=== PATIENT | female | born 1995 | race Hispanic/Latino ===

== ENCOUNTER 2018-10-03 04:33 | Emergency (ER) | payer SELFPAY ==
--- NOTE | 2018-10-03 05:09 | ER ---
Nurse's Notes [facility] Name: Melanie Kim Age: 22 yrs Sex: Female : 1995 Arrival Date: 10/03/2018 Time: 04:35 Bed 19 Private MD: Diagnosis: Pain in left finger(s)-ring removed Presentation: 10/03 04:46 Presenting complaint: Patient states: My finger swells when I sleep on it and my ring ed1 got stuck. Transition of care: patient was not received from another setting of care. Onset of symptoms was October 03, 2018. Risk Assessment: Do you want to hurt yourself or someone else? Patient reports no desire to harm self or others. Initial Sepsis Screen: Does the patient meet any 2 criteria? No. Patient's initial sepsis screen is negative. Does the patient have a suspected source of infection? No. Patient's initial sepsis screen is negative. Care prior to arrival: None. 04:46 Method Of Arrival: Ambulatory ed1 04:46 Acuity: NATE 5 ed1 Triage Assessment: 04:48 General: Appears in no apparent distress. Behavior is calm, cooperative. Pain: ed1 Complains of pain in dorsal aspect of proximal phalanx of left middle finger Pain currently is 6 out of 10 on a pain scale. EENT: No signs and/or symptoms were reported regarding the EENT system. Neuro: Level of Consciousness is awake, alert, obeys commands, Oriented to person, place, time, situation. Cardiovascular: Denies chest pain, Heart tones S1 S2 present. Respiratory: Airway is patent Respiratory effort is even, unlabored, Respiratory pattern is regular, symmetrical. GI: No signs and/or symptoms were reported involving the gastrointestinal system. : No signs and/or symptoms were reported regarding the genitourinary system. Derm: Skin is intact, is healthy with good turgor, Skin is dry, Skin is normal, Skin temperature is warm. Musculoskeletal: Circulation, motion, and sensation intact. Swelling present in dorsal aspect of proximal phalanx of left middle finger. 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 - Social history:: Smoking status: Patient uses tobacco products, denies chronic smoking, but will smoke occasionally. - Ebola Screening: : Patient negative for fever greater than or equal to 101.5 degrees Fahrenheit, and additional compatible Ebola Virus Disease symptoms Patient denies exposure to infectious person Patient denies travel to an Ebola-affected area in the 21 days before illness onset No symptoms or risks identified at this time. - Family history:: not pertinent. Screenin:51 Abuse screen: Denies threats or abuse. Denies injuries from another. Nutritional ed1 screening: No deficits noted. Tuberculosis screening: No symptoms or risk factors identified. Fall Risk None identified. Assessment: 04:51 General: See triage assessment. ed1 05:17 Reassessment: Dr. Chin removed ring using ring cutter. ed1 Vital Signs: 04:48 BP 120 / 84; Pulse 97; Resp 17; Temp 98.4(O); Pulse Ox 100% on R/A; Weight 63.5 kg; ed1 Height 4 ft. 11 in. (149.86 cm); Pain 6/10; 04:48 Body Mass Index 28.28 (63.50 kg, 149.86 cm) ed1 ED Course: 04:35 Patient arrived in ED. ds1 04:38 Jarrett Chin MD is Attending Physician. anna 04:40 Coreen Jalloh, RN is Primary Nurse. ed1 04:47 Triage completed. ed1 04:48 Arm band placed on. ed1 04:51 Patient has correct armband on for positive identification. Bed in low position. Call ed1 light in reach. Adult w/ patient. 04:52 Ice pack to injury. ed1 05:17 No provider procedures requiring assistance completed. Patient did not have IV access ed1 during this emergency room visit. Administered Medications: No medications were administered Outcome: 05:08 Discharge ordered by . anna 05:17 Discharged to home ambulatory. ed1 05:17 Condition: good 05:17 Discharge instructions given to patient, Instructed on discharge instructions, follow up and referral plans. Demonstrated understanding of instructions, follow-up care. 05:18 Patient left the ED. ed1 Signatures: Jarrett Chin MD MD cha Sanford, Demi ds1 Coreen Jalloh, RN RN ed1
--- NOTE | 2018-10-03 05:09 | EDPHYS ---
Physician Documentation [facility] [place] Name: Melanie Kim Age: 22 yrs Sex: Female : 1995 Arrival Date: 10/03/2018 Time: 04:35 Bed 19 Private MD: DARIEL Physician Jarrett Chin HPI: 10/03 05:03 This 22 yrs old Female presents to ER via Ambulatory with complaints of Ring anna Stuck on Finger. 05:03 The patient or guardian reports pain, ring stuck. The complaints affect the MCP of left anna ring finger. Context: The problem was sustained at home. Onset: The symptoms/episode began/occurred 1 day(s) ago. Associated signs and symptoms: The patient has no apparent associated signs or symptoms. Severity of symptoms: At their worst the symptoms were mild. The patient has not experienced similar symptoms in the past. 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 - Social history:: Smoking status: Patient uses tobacco products, denies chronic smoking, but will smoke occasionally. - Ebola Screening: : Patient negative for fever greater than or equal to 101.5 degrees Fahrenheit, and additional compatible Ebola Virus Disease symptoms Patient denies exposure to infectious person Patient denies travel to an Ebola-affected area in the 21 days before illness onset No symptoms or risks identified at this time. - Family history:: not pertinent. ROS: 05:03 Constitutional: Negative for fever, chills, and weight loss, Eyes: Negative for injury, anna pain, redness, and discharge, ENT: Negative for injury, pain, and discharge, Neck: Negative for injury, pain, and swelling, Cardiovascular: Negative for chest pain, palpitations, and edema, Respiratory: Negative for shortness of breath, cough, wheezing, and pleuritic chest pain, Abdomen/GI: Negative for abdominal pain, nausea, vomiting, diarrhea, and constipation, Back: Negative for injury and pain, : Negative for injury, bleeding, discharge, and swelling, Skin: Negative for injury, rash, and discoloration, Neuro: Negative for headache, weakness, numbness, tingling, and seizure, Psych: Negative for depression, anxiety, suicide ideation, homicidal ideation, and hallucinations, Allergy/Immunology: Negative for hives, rash, and allergies, Endocrine: Negative for neck swelling, polydipsia, polyuria, polyphagia, and marked weight changes, Hematologic/Lymphatic: Negative for swollen nodes, abnormal bleeding, and unusual bruising. 05:03 MS/extremity: Positive for decreased range of motion, pain, of the dorsal aspect of proximal phalanx of left ring finger. Exam: 05:03 Constitutional: This is a well developed, well nourished patient who is awake, alert, anna and in no acute distress. Head/Face: Normocephalic, atraumatic. Eyes: Pupils equal round and reactive to light, extra-ocular motions intact. Lids and lashes normal. Conjunctiva and sclera are non-icteric and not injected. Cornea within normal limits. Periorbital areas with no swelling, redness, or edema. ENT: Nares patent. No nasal discharge, no septal abnormalities noted. Tympanic membranes are normal and external auditory canals are clear. Oropharynx with no redness, swelling, or masses, exudates, or evidence of obstruction, uvula midline. Mucous membranes moist. Neck: Trachea midline, no thyromegaly or masses palpated, and no cervical lymphadenopathy. Supple, full range of motion without nuchal rigidity, or vertebral point tenderness. No Meningismus. Chest/axilla: Normal chest wall appearance and motion. Nontender with no deformity. No lesions are appreciated. Cardiovascular: Regular rate and rhythm with a normal S1 and S2. No gallops, murmurs, or rubs. Normal PMI, no JVD. No pulse deficits. Respiratory: Lungs have equal breath sounds bilaterally, clear to auscultation and percussion. No rales, rhonchi or wheezes noted. No increased work of breathing, no retractions or nasal flaring. Abdomen/GI: Soft, non-tender, with normal bowel sounds. No distension or tympany. No guarding or rebound. No evidence of tenderness throughout. Back: No spinal tenderness. No costovertebral tenderness. Full range of motion. Skin: Warm, dry with normal turgor. Normal color with no rashes, no lesions, and no evidence of cellulitis. Neuro: Awake and alert, GCS 15, oriented to person, place, time, and situation. Cranial nerves II-XII grossly intact. Motor strength 5/5 in all extremities. Sensory grossly intact. Cerebellar exam normal. Normal gait. Psych: Awake, alert, with orientation to person, place and time. Behavior, mood, and affect are within normal limits. 05:03 Musculoskeletal/extremity: Extremities: pain, swelling, ROM: full active range of motion, full passive range of motion, Circulation is intact in all extremities. Sensation intact. DVT Exam: negative Homans' sign noted on exam, no appreciated bluish discoloration, no erythema, no increased warmth, pain, swelling, tenderness. Vital Signs: 04:48 BP 120 / 84; Pulse 97; Resp 17; Temp 98.4(O); Pulse Ox 100% on R/A; Weight 63.5 kg; ed1 Height 4 ft. 11 in. (149.86 cm); Pain 6/10; 04:48 Body Mass Index 28.28 (63.50 kg, 149.86 cm) ed1 Procedures: 05:03 Foreign Body Removal: piece of jewelry, from the left dorsal aspect of proximal phalanx anna of left ring finger and palmar aspect of proximal phalanx of left ring finger, by cutter. MDM: 04:38 Patient medically screened. [facility] 05:03 Data reviewed: vital signs, nurses notes. anna Administered Medications: No medications were administered Disposition: 10/03/18 05:08 Discharged to Home. Impression: Pain in left finger(s) - ring removed. - Condition is Stable. - Discharge Instructions: Finger Sprain, [id number]. - Medication Reconciliation Form, Thank You Letter, Antibiotic Education, Prescription Opioid Use, Family Work Release form. - Follow up: Private Physician; When: 2 - 3 days; Reason: Recheck today's complaints, Continuance of care, Re-evaluation by your physician. - Problem is new. - Symptoms have improved. Signatures: Jarrett Chin MD MD cha Riggs, Erika, RN RN ed1 Corrections: (The following items were deleted from the chart) 05:18 05:08 10/03/2018 05:08 Discharged to Home. Impression: Pain in left finger(s) - ring ed1 removed. Condition is Stable. Forms are Medication Reconciliation Form, Thank You Letter, Antibiotic Education, Prescription Opioid Use. Follow up: Private Physician; When: 2 - 3 days; Reason: Recheck today's complaints, Continuance of care, Re-evaluation by your physician. Problem is new. Symptoms have improved. anna
== END 2018-10-03 05:18 | disposition home or self-care (01) ==
LOC: ER 04:33
DX: M79.645 Pain in left finger(s) (principal); F90.9 Attention-deficit hyperactivity disorder, unspecified type; Z72.0 Tobacco use
CPT/HCPCS: 99281

== ENCOUNTER 2019-01-14 01:00 | Emergency (ER) | payer SELFPAY ==
[2019-01-14] MEDS ORDERED: KETOROLAC 30 MG/ML INJ ONE (02:03)
[2019-01-14] MEDS ORDERED: ONDANSETRON 4 MG/2 ML VIAL ONE (02:03)
[2019-01-14] MEDS ORDERED: NA CHLORIDE 0.9% 1,000 ML ONE (02:03)
[2019-01-14 02:33] LABS: Urine Blood NEGATIVE (NEG); Urine Glucose NEGATIVE (NEG); Urine Protein NEGATIVE (NEG)
--- NOTE | 2019-01-14 03:15 | EDPHYS ---
Physician Documentation [facility] [place] Name: Melanie Kim Age: 23 yrs Sex: Female : 1995 Arrival Date: 01/14/2019 Time: 01:04 Bed 8 Private MD: ED Physician Bandar Urena HPI: 01/14 03:17 This 23 yrs old Female presents to ER via Ambulatory with complaints of tw4 Headache, Spotting. 03:17 The patient complains of pain to the forehead. The patient describes the headache as tw4 aching. Onset: The symptoms/episode began/occurred 1 month(s) ago, and became persistent yesterday. Associated signs and symptoms: Pertinent positives: nausea, Photophobia visual field changes, Pertinent negatives: fever, neck stiffness, paresthesias, vision loss. Severity of symptoms: At its worst the pain was moderate, in the emergency department the pain is unchanged. Headache History: Denies prior headaches. The symptoms are alleviated by Darkened room, quiet, the symptoms are aggravated by lights, noise. The patient has not experienced similar symptoms in the past. 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 - Social history:: Smoking status: Patient uses tobacco products, smokes one-half pack cigarettes per day, Patient uses alcohol, occasionally. Patient/guardian denies using street drugs. - Ebola Screening: : Patient negative for fever greater than or equal to 101.5 degrees Fahrenheit, and additional compatible Ebola Virus Disease symptoms Patient denies exposure to infectious person Patient denies travel to an Ebola-affected area in the 21 days before illness onset. ROS: 03:17 Constitutional: Negative for fever, chills, and weight loss, Eyes: Negative for injury, tw4 pain, redness, and discharge, Cardiovascular: Negative for chest pain, palpitations, and edema, Respiratory: Negative for shortness of breath, cough, wheezing, and pleuritic chest pain, Abdomen/GI: Negative for abdominal pain, nausea, vomiting, diarrhea, and constipation, Back: Negative for injury and pain, MS/Extremity: Negative for injury and deformity. 03:17 Neuro: Positive for headache, Negative for altered mental status, dizziness, gait disturbance, numbness, seizure activity, speech changes, syncope, near syncope, tinnitus, tremor, visual changes. Exam: 03:17 Constitutional: This is a well developed, well nourished patient who is awake, alert, tw4 and in no acute distress. Head/Face: Normocephalic, atraumatic. Chest/axilla: Normal chest wall appearance and motion. Nontender with no deformity. No lesions are appreciated. Cardiovascular: Regular rate and rhythm with a normal S1 and S2. No gallops, murmurs, or rubs. Normal PMI, no JVD. No pulse deficits. Respiratory: Lungs have equal breath sounds bilaterally, clear to auscultation and percussion. No rales, rhonchi or wheezes noted. No increased work of breathing, no retractions or nasal flaring. Abdomen/GI: Soft, non-tender, with normal bowel sounds. No distension or tympany. No guarding or rebound. No evidence of tenderness throughout. Back: No spinal tenderness. No costovertebral tenderness. Full range of motion. MS/ Extremity: Pulses equal, no cyanosis. Neurovascular intact. Full, normal range of motion. 03:17 Neuro: Awake and alert, GCS 15, oriented to person, place, time, and situation. Cranial nerves II-XII grossly intact. Motor strength 5/5 in all extremities. Sensory grossly intact. Cerebellar exam normal. Normal gait. 03:17 Neuro: Orientation: is normal, Mentation: is normal, Memory: is normal. Vital Signs: 01:26 BP 121 / 84; Pulse 97; Resp 17; Temp 98.1(O); Pulse Ox 100% on R/A; Weight 65.77 kg; tl1 Height 4 ft. 10 in. (147.32 cm); Pain 5/10; 02:09 BP 121 / 106; Pulse 71; Resp 16; Pulse Ox 100% on R/A; Pain 5/10; tl1 03:11 BP 92 / 68; Pulse 68; Resp 17; Pulse Ox 100% ; Pain 2/10; tl1 01:26 Body Mass Index 30.30 (65.77 kg, 147.32 cm) tl1 MDM: 01:40 Patient medically screened. tw4 03:17 Data reviewed: vital signs, nurses notes. Counseling: I had a detailed discussion with tw4 the patient and/or guardian regarding: the historical points, exam findings, and any diagnostic results supporting the discharge/admit diagnosis. Medication response: Toradol relieved patient's pain. The symptoms have resolved, Zofran relieved the patient's nausea. Response to treatment: and as a result, I will discharge patient. 01/14 01:47 Order name: Urine Dipstick--Ancillary (enter results) em1 01/14 01:47 Order name: Urine --Ancillary (enter results) em1 01/14 01:40 Order name: Urine Dipstick-Ancillary (obtain specimen); Complete Time: 01:46 tw4 01/14 01:40 Order name: Urine Test (obtain specimen); Complete Time: 01:46 tw4 Administered Medications: 02:06 Drug: NS 0.9% 1000 ml Route: IV; Rate: 1 bolus; Site: right antecubital; bb 02:50 Follow up: IV Status: Completed infusion; IV Intake: 1000ml tl1 02:06 Drug: TORadol 30 mg Route: IVP; Site: right antecubital; bb 03:26 Follow up: Response: No adverse reaction; Marked relief of symptoms; Pain is decreased tl1 02:51 Drug: Zofran 4 mg Route: IVP; Infused Over: 2 mins; Site: right antecubital; tl1 03:26 Follow up: Response: No adverse reaction; Marked relief of symptoms; Pain is decreased tl1 Disposition: 01/14/19 03:15 Discharged to Home. Impression: Migraine without aura, not intractable. - Condition is Stable. - Discharge Instructions: Migraine Headache. - Prescriptions for Fiorinal 50- 325-40 mg Oral Capsule - take 1 capsule by ORAL route every 4 hours As needed - not to exceed 6 capsules per day; 20 capsule. - Medication Reconciliation Form, Thank You Letter, Antibiotic Education, Prescription Opioid Use form. - Follow up: Private Physician; When: Upon discharge from the Emergency Department; Reason: If symptoms return, Recheck today's complaints, Continuance of care. - Problem is new. - Symptoms have improved. Signatures: Dispatcher [employer] EDEstee Mendez, RN RN bb Yennifer Hyatt RN RN tl1 Bandar Urena MD MD tw4 Corrections: (The following items were deleted from the chart) 03:28 03:15 01/14/2019 03:15 Discharged to Home. Impression: Migraine without aura, not tl1 intractable. Condition is Stable. Forms are Medication Reconciliation Form, Thank You Letter, Antibiotic Education, Prescription Opioid Use. Follow up: Private Physician; When: Upon discharge from the Emergency Department; Reason: If symptoms return, Recheck today's complaints, Continuance of care. Problem is new. Symptoms have improved. tw4
--- NOTE | 2019-01-14 03:15 | ER ---
Nurse's Notes [facility] [place] Name: Melanie Kim Age: 23 yrs Sex: Female : 1995 Arrival Date: 01/14/2019 Time: 01:04 Bed 8 Private MD: Diagnosis: Migraine without aura, not intractable Presentation: 01/14 01:23 Presenting complaint: Patient states: I have had a migraine for about 1 month. I tl1 vomited 1 time today. Transition of care: patient was not received from another setting of care. Onset of symptoms is unknown. Risk Assessment: Do you want to hurt yourself or someone else? Patient reports no desire to harm self or others. Initial Sepsis Screen: Does the patient meet any 2 criteria? No. Patient's initial sepsis screen is negative. Does the patient have a suspected source of infection? No. Patient's initial sepsis screen is negative. Care prior to arrival: None. 01:23 Method Of Arrival: Ambulatory tl1 01:23 Acuity: NATE 3 tl1 Triage Assessment: 03:27 Headache History: The patient has had previous headaches and this one is similar to tl1 previous episodes. General: Appears in no apparent distress. Pain: Also complains of. 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 - Social history:: Smoking status: Patient uses tobacco products, smokes one-half pack cigarettes per day, Patient uses alcohol, occasionally. Patient/guardian denies using street drugs. - Ebola Screening: : Patient negative for fever greater than or equal to 101.5 degrees Fahrenheit, and additional compatible Ebola Virus Disease symptoms Patient denies exposure to infectious person Patient denies travel to an Ebola-affected area in the 21 days before illness onset. Screenin:28 Abuse screen: Denies threats or abuse. Denies injuries from another. Nutritional tl1 screening: No deficits noted. Tuberculosis screening: No symptoms or risk factors identified. Fall Risk IV access (20 points). Assessment: 01:20 General: Appears in no apparent distress. uncomfortable, Behavior is calm, cooperative. bb Pain: Complains of pain in head Pain currently is 5 out of 10 on a pain scale. Neuro: Level of Consciousness is awake, alert, obeys commands, Oriented to person, place, time, situation. Cardiovascular: No deficits noted. Respiratory: Respiratory effort is even, unlabored, Respiratory pattern is regular. GI: Abdomen is non-distended. Derm: Skin is pink, warm \T\ dry. Musculoskeletal: Circulation, motion, and sensation intact. 03:25 Reassessment: Patient and/or family updated on plan of care and expected duration. Pain tl1 level reassessed. Patient is alert, oriented x 3, equal unlabored respirations, skin warm/dry/pink. Patient states feeling better. Patient states symptoms have improved. General: Appears in no apparent distress. Behavior is calm, cooperative, appropriate for age. Pain: Complains of pain in forehead Pain currently is 2 out of 10 on a pain scale. Quality of pain is described as aching. Neuro: Level of Consciousness is awake, alert, obeys commands, Oriented to person, place, time, situation. Vital Signs: 01:26 BP 121 / 84; Pulse 97; Resp 17; Temp 98.1(O); Pulse Ox 100% on R/A; Weight 65.77 kg; tl1 Height 4 ft. 10 in. (147.32 cm); Pain 5/10; 02:09 BP 121 / 106; Pulse 71; Resp 16; Pulse Ox 100% on R/A; Pain 5/10; tl1 03:11 BP 92 / 68; Pulse 68; Resp 17; Pulse Ox 100% ; Pain 2/10; tl1 01:26 Body Mass Index 30.30 (65.77 kg, 147.32 cm) tl1 ED Course: 01:04 Patient arrived in ED. cl3 01:20 Patient has correct armband on for positive identification. Bed in low position. Call bb light in reach. Side rails up X 1. Adult w/ patient. Pulse ox on. NIBP on. Warm blanket given. 01:23 Yennifer Hyatt RN is Primary Nurse. tl1 01:25 Triage completed. tl1 01:27 Arm band placed on right wrist. tl1 01:27 No provider procedures requiring assistance completed. Inserted saline lock: 20 gauge tl1 in right antecubital area, using aseptic technique. Blood collected. 01:40 Bandar Urena MD is Attending Physician. tw4 03:28 IV discontinued, intact, bleeding controlled, No redness/swelling at site. Pressure tl1 dressing applied. Administered Medications: 02:06 Drug: NS 0.9% 1000 ml Route: IV; Rate: 1 bolus; Site: right antecubital; bb 02:50 Follow up: IV Status: Completed infusion; IV Intake: 1000ml tl1 02:06 Drug: TORadol 30 mg Route: IVP; Site: right antecubital; bb 03:26 Follow up: Response: No adverse reaction; Marked relief of symptoms; Pain is decreased tl1 02:51 Drug: Zofran 4 mg Route: IVP; Infused Over: 2 mins; Site: right antecubital; tl1 03:26 Follow up: Response: No adverse reaction; Marked relief of symptoms; Pain is decreased tl1 Intake: 02:50 IV: 1000ml; Total: 1000ml. tl1 Outcome: 03:15 Discharge ordered by . tw4 03:26 Discharged to home ambulatory, with family. tl1 03:26 Condition: improved 03:26 Discharge instructions given to patient, family, Instructed on discharge instructions, follow up and referral plans. medication usage, Demonstrated understanding of instructions, follow-up care, medications, Prescriptions given X 1. 03:28 Patient left the ED. tl1 Signatures: Estee Arce RN RN bb Yennifer Hyatt RN RN tl1 Bandar Urena MD MD [id number] Sung Rasmussen 3
[2019-01-14 06:57] VITALS: TEMP 98.1; O2SAT 100
[2019-01-14 07:00] VITALS: BP 92/68
== END 2019-01-14 03:28 | disposition home or self-care (01) ==
LOC: ER 01:00
DX: G43.009 Migraine without aura, not intractable, without status migrainosus (principal); F90.9 Attention-deficit hyperactivity disorder, unspecified type
CPT/HCPCS: 81003; 81025; 96361; 96374; 96375; 99284; J2405; J7030

== ENCOUNTER 2019-01-16 10:41 | Emergency (ER) | payer SELFPAY ==
[2019-01-16] MEDS ORDERED: ONDANSETRON 4 MG/2 ML VIAL ONE (11:15)
[2019-01-16] MEDS ORDERED: NA CHLORIDE 0.9% 1,000 ML ONE (11:15)
[2019-01-16] MEDS ORDERED: MORPHINE 4 MG/ML SYR ONE (11:39)
[2019-01-16 11:57] LABS: Absolute Lymphocytes (CBC) 1.5 K/uL (0.7-4.9); Basophils % 0.4 % (0-1.3); Hematocrit 38.4 % (36.0-45.0); Lymphocytes % 18.6 % (15.3-44.8); MPV 9.6 fL (7.6-11.3); RBC Red Blood Cell Count 4.61 M/uL (3.86-4.86)
[2019-01-16 12:19] LABS: ALT/SGPT 61 U/L (12-78); AST/SGOT 30 U/L (15-37); Alkaline Phosphatase 106 U/L (45-117); BUN Blood Urea Nitrogen 11 mg/dL (7-18); Bicarbonate 26 mmol/L (21-32); Bilirubin Direct < 0.1 mg/dL (0-0.2); Bilirubin Total 0.2 mg/dL (0.2-1.0); Glucose Level 102 mg/dL (74-106); Lipase 192 U/L (73-393); Potassium 4.1 mmol/L (3.5-5.1); Protein, Total 8.4 g/dL (6.4-8.2); Sodium Level 142 mmol/L (136-145)
--- NOTE | 2019-01-16 12:52 | ER ---
Nurse's Notes [facility] [place] Name: Melanie Kim Age: 23 yrs Sex: Female : 1995 Arrival Date: 01/16/2019 Time: 10:43 Bed 20 Private MD: Diagnosis: Gastritis, unspecified Presentation: 01/16 10:49 Presenting complaint: Patient states: This morning when I was waking up my eyes were la1 open and I was looking at the wall but I couldn't move, this lasted for about three minutes and then I got up and started vomiting. I have thrown up about 7 times and am having abd pain now. Transition of care: patient was not received from another setting of care. Onset of symptoms was January 16, 2019. Risk Assessment: Do you want to hurt yourself or someone else? Patient reports no desire to harm self or others. Initial Sepsis Screen: Does the patient meet any 2 criteria? No. Patient's initial sepsis screen is negative. Does the patient have a suspected source of infection? No. Patient's initial sepsis screen is negative. Care prior to arrival: None. 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 - Social history:: Smoking status: Patient uses tobacco products, smokes one-half pack cigarettes per day, Patient/guardian denies using alcohol, street drugs, The patient lives with family. - Ebola Screening: : No symptoms or risks identified at this time. - Family history:: not pertinent. Screenin:57 Abuse screen: Denies threats or abuse. Denies injuries from another. Nutritional ph screening: No deficits noted. Tuberculosis screening: No symptoms or risk factors identified. Fall Risk None identified. Assessment: 11:45 General: Appears in no apparent distress. comfortable, well groomed, Behavior is calm, ph cooperative, appropriate for age, Denies fever, chills. Pain: Complains of pain in right upper quadrant and left upper quadrant. Neuro: Level of Consciousness is awake, alert, obeys commands, Oriented to person, place, time, situation. Cardiovascular: Capillary refill < 3 seconds in bilateral fingers Patient's skin is warm and dry. Respiratory: Airway is patent Respiratory effort is even, unlabored, Respiratory pattern is regular, symmetrical. GI: Abdomen is round Bowel sounds present X 4 quads. Abd is soft X 4 quads Abdomen is tender to palpation in right upper quadrant and left upper quadrant Reports upper abdominal pain, nausea, vomiting. Derm: Skin is intact, is healthy with good turgor, Skin is pink, warm \T\ dry. Musculoskeletal: Circulation, motion, and sensation intact. Range of motion: intact in all extremities. 13:00 Reassessment: Patient appears in no apparent distress at this time. Patient and/or ph family updated on plan of care and expected duration. Pain level reassessed. Patient is alert, oriented x 3, equal unlabored respirations, skin warm/dry/pink. Patient states symptoms have improved. 14:00 Reassessment: Patient appears in no apparent distress at this time. No changes from previously documented assessment. Patient and/or family updated on plan of care and expected duration. Pain level reassessed. Patient is alert, oriented x 3, equal unlabored respirations, skin warm/dry/pink. Vital Signs: 10:48 BP 126 / 92; Pulse 79; Resp 16; Temp 97.5; Pulse Ox 100% on R/A; Weight 63.96 kg; la1 Height 4 ft. 10 in. (147.32 cm); 11:47 BP 117 / 73; Pulse 76; Resp 18; Pulse Ox 99% on R/A; Pain 5/10; ph 13:10 BP 118 / 78; Pulse 76; Resp 18; Temp 98.0; Pulse Ox 99% on R/A; ph 10:48 Body Mass Index 29.47 (63.96 kg, 147.32 cm) la1 ED Course: 10:43 Patient arrived in ED. mr 10:47 Arm band placed on left wrist. la1 10:50 Triage completed. la1 10:52 Bishnu Kline MD is Attending Physician. ma2 10:55 Patricia Dutton RN is Primary Nurse. ph 10:58 Patient has correct armband on for positive identification. Pulse ox on. NIBP on. Door ph closed. Noise minimized. Warm blanket given. Head of bed elevated. 12:50 Keagan Martin MD is Hospitalizing Provider. ma2 13:11 No provider procedures requiring assistance completed. IV discontinued, intact, ph bleeding controlled, No redness/swelling at site. Pressure dressing applied. Administered Medications: 11:35 Drug: NS 0.9% 1000 ml Route: IV; Rate: 1 bolus; Site: right antecubital; ph 13:10 Follow up: Response: No adverse reaction; IV Status: Completed infusion; IV Intake: ph 1000ml 11:35 Drug: Zofran 4 mg Route: IVP; Site: right antecubital; ph 13:10 Follow up: Response: No adverse reaction ph 11:45 Drug: morphine 4 mg Route: IVP; Site: right antecubital; ph 13:10 Follow up: Response: No adverse reaction; Pain is decreased; RASS: Alert and Calm (0) ph Intake: 13:10 IV: 1000ml; Total: 1000ml. ph Outcome: 12:50 Decision to Hospitalize by Provider. ma2 12:51 Discharge ordered by . ma2 13:11 Discharged to home ambulatory, with significant other. ph 13:11 Condition: good 13:11 Discharge instructions given to patient, Instructed on discharge instructions, follow up and referral plans. medication usage, Demonstrated understanding of instructions, follow-up care, medications, Prescriptions given X 2. 13:12 Patient left the ED. ph Signatures: Julee Jacobsen Lee, RN RN la1 Patricia Dutton RN RN ph Bishun Kline MD MD ma2
--- NOTE | 2019-01-16 12:52 | EDPHYS ---
Physician Documentation [facility] Name: Melanie Kim Age: 23 yrs Sex: Female : 1995 Arrival Date: 01/16/2019 Time: 10:43 Bed 20 Private MD: ED Physician Bishnu Kline HPI: 01/16 12:49 This 23 yrs old Female presents to ER via Ambulatory with complaints of ma2 Abdominal Pain, Vomiting. 12:49 The patient presents to the emergency department with nausea, vomiting. Onset: The ma2 symptoms/episode began/occurred gradually, 1 week(s) ago. The symptoms are alleviated by nothing. Associated signs and symptoms: Pertinent negatives: abdominal pain. Severity of symptoms: At their worst the symptoms were very mild in the emergency department the symptoms are unchanged. The patient has not experienced similar symptoms in the past. 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 - Social history:: Smoking status: Patient uses tobacco products, smokes one-half pack cigarettes per day, Patient/guardian denies using alcohol, street drugs, The patient lives with family. - Ebola Screening: : No symptoms or risks identified at this time. - Family history:: not pertinent. ROS: 12:49 Constitutional: Negative for fever, chills, and weight loss. ma2 12:49 All other systems are negative. Exam: 12:49 Constitutional: This is a well developed, well nourished patient who is awake, alert, ma2 and in no acute distress. Head/Face: Normocephalic, atraumatic. Eyes: Pupils equal round and reactive to light, extra-ocular motions intact. Lids and lashes normal. Conjunctiva and sclera are non-icteric and not injected. Cornea within normal limits. Periorbital areas with no swelling, redness, or edema. ENT: Nares patent. No nasal discharge, no septal abnormalities noted. Tympanic membranes are normal and external auditory canals are clear. Oropharynx with no redness, swelling, or masses, exudates, or evidence of obstruction, uvula midline. Mucous membranes moist. Neck: Trachea midline, no thyromegaly or masses palpated, and no cervical lymphadenopathy. Supple, full range of motion without nuchal rigidity, or vertebral point tenderness. No Meningismus. Chest/axilla: Normal chest wall appearance and motion. Nontender with no deformity. No lesions are appreciated. Cardiovascular: Regular rate and rhythm with a normal S1 and S2. No gallops, murmurs, or rubs. Normal PMI, no JVD. No pulse deficits. Respiratory: Lungs have equal breath sounds bilaterally, clear to auscultation and percussion. No rales, rhonchi or wheezes noted. No increased work of breathing, no retractions or nasal flaring. Abdomen/GI: Soft, non-tender, with normal bowel sounds. No distension or tympany. No guarding or rebound. No evidence of tenderness throughout. Back: No spinal tenderness. No costovertebral tenderness. Full range of motion. Skin: Warm, dry with normal turgor. Normal color with no rashes, no lesions, and no evidence of cellulitis. MS/ Extremity: Pulses equal, no cyanosis. Neurovascular intact. Full, normal range of motion. Neuro: Awake and alert, GCS 15, oriented to person, place, time, and situation. Cranial nerves II-XII grossly intact. Motor strength 5/5 in all extremities. Sensory grossly intact. Cerebellar exam normal. Normal gait. Vital Signs: 10:48 BP 126 / 92; Pulse 79; Resp 16; Temp 97.5; Pulse Ox 100% on R/A; Weight 63.96 kg; la1 Height 4 ft. 10 in. (147.32 cm); 11:47 BP 117 / 73; Pulse 76; Resp 18; Pulse Ox 99% on R/A; Pain 5/10; ph 13:10 BP 118 / 78; Pulse 76; Resp 18; Temp 98.0; Pulse Ox 99% on R/A; ph 10:48 Body Mass Index 29.47 (63.96 kg, 147.32 cm) la1 MDM: 10:52 Patient medically screened. ma2 12:49 Differential diagnosis: Nonspecific abd pain, gastritis, cholecystitis, pancreatitis, ma2 viral gastroenteritis, gastroenteritis. Data reviewed: vital signs, nurses notes. Counseling: I had a detailed discussion with the patient and/or guardian regarding: the historical points, exam findings, and any diagnostic results supporting the discharge/admit diagnosis, the presence of at least one elevated blood pressure reading (>120/80) during this emergency department visit, the need for outpatient follow up. Response to treatment: the patient's symptoms have markedly improved after treatment. 01/16 10:55 Order name: Basic Metabolic Panel; Complete Time: 12:45 ma2 01/16 10:55 Order name: CBC with Diff; Complete Time: 12:19 ma2 01/16 10:55 Order name: Creatinine for Radiology; Complete Time: 12:19 ma2 01/16 10:55 Order name: Hepatic Function; Complete Time: 12:45 ma2 01/16 10:55 Order name: Lipase; Complete Time: 12:45 ma2 01/16 10:55 Order name: Test, Serum; Complete Time: 12:51 ma2 01/16 10:55 Order name: IV Saline Lock; Complete Time: 11:45 ma2 01/16 10:55 Order name: Labs collected and sent; Complete Time: 11:45 ma2 01/16 10:55 Order name: Urine Dipstick-Ancillary (obtain specimen); Complete Time: 13:10 ma2 Administered Medications: 11:35 Drug: NS 0.9% 1000 ml Route: IV; Rate: 1 bolus; Site: right antecubital; ph 13:10 Follow up: Response: No adverse reaction; IV Status: Completed infusion; IV Intake: ph 1000ml 11:35 Drug: Zofran 4 mg Route: IVP; Site: right antecubital; ph 13:10 Follow up: Response: No adverse reaction ph 11:45 Drug: morphine 4 mg Route: IVP; Site: right antecubital; ph 13:10 Follow up: Response: No adverse reaction; Pain is decreased; RASS: Alert and Calm (0) ph Disposition: 01/16/19 12:51 Discharged to Home. Impression: Gastritis, unspecified. - Condition is Stable. - Discharge Instructions: Gastritis, Adult. - Prescriptions for Pepcid 20 mg Oral Tablet - take 1 tablet by ORAL route every 12 hours for 10 days; 20 tablet. promethazine 25 mg Oral Tablet - take 1 tablet by ORAL route every 6 hours As needed; 20 tablet. - Medication Reconciliation Form, Thank You Letter, Antibiotic Education, Prescription Opioid Use form. - Follow up: Private Physician; When: Tomorrow; Reason: Continuance of care. Signatures: Dispatcher [employer] Mike Larios RN RN la1 Patricia Dutton RN RN Bishnu Kline MD MD ma2 Corrections: (The following items were deleted from the chart) 12:51 12:50 Hospitalization Ordered by Keagan Martin MD for Observation. Preliminary diagnosis ma2 is Syncope and collapse. Bed requested for Telemetry/MedSurg (observation). Status is Observation. Condition is Stable. Problem is new. Symptoms are unchanged. UTI on Admission? No. ma2 13:12 12:51 01/16/2019 12:51 Discharged to Home. Impression: Gastritis, unspecified. ph Condition is Stable. Forms are Medication Reconciliation Form, Thank You Letter, Antibiotic Education, Prescription Opioid Use. Follow up: Private Physician; When: Tomorrow; Reason: Continuance of care. ma2
[2019-01-16 13:37] VITALS: O2SAT 99
[2019-01-16 13:39] VITALS: BP 118/78; TEMP 98
== END 2019-01-16 13:12 | disposition home or self-care (01) ==
LOC: ER 10:41
DX: K29.70 Gastritis, unspecified, without bleeding (principal); F17.210 Nicotine dependence, cigarettes, uncomplicated
CPT/HCPCS: 36415; 80048; 80076; 83690; 84703; 85025; 96361; 96374; 96375; 99283; J2405; J7030

== ENCOUNTER 2019-01-16 23:53 | Observation (INO) | payer SELFPAY ==
[2019-01-17] MEDS ORDERED: FAMOTIDINE 20 MG/2 ML VIAL IV ONE (00:18)
[2019-01-17] MEDS ORDERED: NA CHLORIDE 0.9% 1,000 ML ONE ×2 (00:33→02:44)
[2019-01-17 00:54] LABS: Absolute Lymphocytes (CBC) 2.3 K/uL (0.7-4.9); Basophils % 0.3 % (0-1.3); Hematocrit 36.2 % (36.0-45.0); Lymphocytes % 21.9 % (15.3-44.8); MPV 9.4 fL (7.6-11.3); RBC Red Blood Cell Count 4.36 M/uL (3.86-4.86)
[2019-01-17 00:56] LABS: ALT/SGPT 55 U/L (12-78); AST/SGOT 26 U/L (15-37); Albumin 3.9 g/dL (3.4-5.0); Alkaline Phosphatase 83 U/L (45-117); BUN Blood Urea Nitrogen 8 mg/dL (7-18); Bicarbonate 28 mmol/L (21-32); Bilirubin Direct 0.1 mg/dL (0-0.2); Bilirubin Total 0.3 mg/dL (0.2-1.0); Glucose Level 93 mg/dL (74-106); Lipase 143 U/L (73-393); Potassium 3.6 mmol/L (3.5-5.1); Sodium Level 139 mmol/L (136-145)
--- NOTE | 2019-01-17 02:40 | ER ---
Nurse's Notes [facility] [place] Name: Melanie Kim Age: 23 yrs Sex: Female : 1995 Arrival Date: 01/16/2019 Time: 23:55 Bed 15 Private MD: Diagnosis: Generalized abdominal pain Presentation: 01/17 00:21 Presenting complaint: Patient states: Abdominal pain for a week. Nausea and vomiting . ao Transition of care: patient was not received from another setting of care. Onset of symptoms is unknown. Risk Assessment: Do you want to hurt yourself or someone else? Patient reports no desire to harm self or others. Initial Sepsis Screen: Does the patient meet any 2 criteria? No. Patient's initial sepsis screen is negative. Does the patient have a suspected source of infection? No. Patient's initial sepsis screen is negative. Care prior to arrival: None. 00:21 Method Of Arrival: Ambulatory ao 00:21 Acuity: NATE 3 ao Triage Assessment: 00:25 General: Appears in no apparent distress. comfortable, well groomed, well developed, ao well nourished, Behavior is calm, cooperative, appropriate for age. Pain: Complains of pain in abdomen. EENT: No signs and/or symptoms were reported regarding the EENT system. Neuro: Level of Consciousness is awake, alert, obeys commands, Oriented to person, place, time, situation, Appropriate for age Moves all extremities. Full function. Cardiovascular: No deficits noted. Respiratory: No deficits noted. GI: Reports lower abdominal pain, nausea, vomiting. : No signs and/or symptoms were reported regarding the genitourinary system. Derm: No signs and/or symptoms reported regarding the dermatologic system. Musculoskeletal: No signs and/or symptoms reported regarding the musculoskeletal system. 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 - Social history:: Smoking status: Patient uses tobacco products, smokes one-half pack cigarettes per day, Patient/guardian denies using alcohol, street drugs. - Ebola Screening: : Patient negative for fever greater than or equal to 101.5 degrees Fahrenheit, and additional compatible Ebola Virus Disease symptoms Patient denies exposure to infectious person Patient denies travel to an Ebola-affected area in the 21 days before illness onset. Screenin:25 Abuse screen: Denies threats or abuse. Denies injuries from another. Nutritional ao screening: No deficits noted. Tuberculosis screening: No symptoms or risk factors identified. Fall Risk None identified. Assessment: 00:26 Reassessment: See triage assessment. ao 01:14 Reassessment: Patient appears in no apparent distress at this time. Patient and/or ao family updated on plan of care and expected duration. Pain level reassessed. Patient is alert, oriented x 3, equal unlabored respirations, skin warm/dry/pink. 02:22 Reassessment: Patient appears in no apparent distress at this time. Waiting on dispo ao orders. 02:47 Reassessment: Patient o be admitted to the hospital. Patient and family agree with POC. ao Vital Signs: 00:23 BP 99 / 59; Pulse 110; Resp 16; Temp 98.8(O); Pulse Ox 100% on R/A; Weight 65.77 kg; ao Height 4 ft. 10 in. (147.32 cm); Pain 5/10; 01:14 BP 115 / 78; Pulse 101; Resp 18; Pulse Ox 99% ; ao 02:22 BP 97 / 66; Pulse 98; Resp 16; Pulse Ox 91% ; ao 02:46 BP 115 / 82; Pulse 95; Resp 16; Temp 98.6; Pulse Ox 99% on R/A; ao 00:23 Body Mass Index 30.30 (65.77 kg, 147.32 cm) ao ED Course: 01/16 23:55 Patient arrived in ED. cf2 23:57 [facility]rit[facility]C [facility]. kb 23:57 Ming Lyons MD is Attending Physician. kb 01/17 00:06 Gee Geiger, TADEO is Primary Nurse. ao 00:22 Triage completed. ao 00:25 Arm band placed on right wrist. Patient placed in an exam room, on a stretcher, on ao pulse oximetry, Patient notified of wait time. 00:26 Patient has correct armband on for positive identification. Pulse ox on. NIBP on. ao 01:39 CT Abd/Pelvis - IV Contrast Only In Process Unspecified. EDMS 02:39 Bishnu Germain MD is Hospitalizing Provider. kb 04:16 No provider procedures requiring assistance completed. Patient admitted, IV remains in ao place. Administered Medications: 00:21 Drug: Pepcid 20 mg Route: IVP; Site: right antecubital; ao 00:39 Follow up: Response: No adverse reaction ao 00:30 Drug: NS 0.9% 1000 ml Route: IV; Rate: 1000 ml; Site: left antecubital; ao 01:15 Follow up: IV Status: Completed infusion; IV Intake: 1000ml ao 02:57 Drug: NS 0.9% 1000 ml Route: IV; Rate: 125 ml/hr; Site: left antecubital; ao 02:57 Drug: Zosyn 3.375 grams Route: IVPB; Infused Over: 60 mins; Site: left antecubital; ao Intake: 01:15 IV: 1000ml; Total: 1000ml. ao Outcome: 02:39 Decision to Hospitalize by Provider. kb 04:16 Admitted to Med/surg accompanied by nurse, room 208. ao 04:16 Condition: stable 04:16 Instructed on the need for admit. 04:22 Patient left the ED. ao Signatures: Dispatcher [employer] EDMS Amrita Bryant, IVETTE DIAZ-Gee Doan, RN RN Marisel Toribio cf2
--- NOTE | 2019-01-17 02:41 | EDPHYS ---
Physician Documentation [facility] Name: Melanie Kim Age: 23 yrs Sex: Female : 1995 Arrival Date: 01/16/2019 Time: 23:55 Bed 15 Private MD: ED Physician Ming Lyons HPI: 01/17 00:26 This 23 yrs old Female presents to ER via Ambulatory with complaints of kb Vomiting, Abdominal Pain. 00:26 The patient presents with abdominal pain in the upper abdomen. Onset: The kb symptoms/episode began/occurred today. The symptoms do not radiate. Associated signs and symptoms: Pertinent positives: nausea and vomiting, vomiting blood. The symptoms are described as constant. Modifying factors: The symptoms are alleviated by nothing, the symptoms are aggravated by nothing. Severity of pain: At its worst the pain was moderate in the emergency department the pain is unchanged. The patient has not experienced similar symptoms in the past. The patient has been recently seen at the [facility] Emergency Department, today, for similar complaints labs were performed. Pt reports she was here this morning for same symptoms and told she had gastritis. Was told to return if pain increased or she vomited blood. Reports she vomited blood just prior to arrival. 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 - Social history:: Smoking status: Patient uses tobacco products, smokes one-half pack cigarettes per day, Patient/guardian denies using alcohol, street drugs. - Ebola Screening: : Patient negative for fever greater than or equal to 101.5 degrees Fahrenheit, and additional compatible Ebola Virus Disease symptoms Patient denies exposure to infectious person Patient denies travel to an Ebola-affected area in the 21 days before illness onset. ROS: 00:25 Constitutional: Negative for fever, chills, and weight loss, Neck: Negative for injury, kb pain, and swelling, Cardiovascular: Negative for chest pain, palpitations, and edema, Respiratory: Negative for shortness of breath, cough, wheezing, and pleuritic chest pain, Back: Negative for injury and pain, MS/Extremity: Negative for injury and deformity, Skin: Negative for injury, rash, and discoloration, Neuro: Negative for headache, weakness, numbness, tingling, and seizure. 00:25 Abdomen/GI: Positive for abdominal pain, nausea and vomiting, hematemesis. Exam: 00:25 Constitutional: This is a well developed, well nourished patient who is awake, alert, kb and in no acute distress. Head/Face: Normocephalic, atraumatic. ENT: Nares patent. No nasal discharge, no septal abnormalities noted. Tympanic membranes are normal and external auditory canals are clear. Oropharynx with no redness, swelling, or masses, exudates, or evidence of obstruction, uvula midline. Mucous membranes moist. Neck: Trachea midline, no thyromegaly or masses palpated, and no cervical lymphadenopathy. Supple, full range of motion without nuchal rigidity, or vertebral point tenderness. No Meningismus. Chest/axilla: Normal chest wall appearance and motion. Nontender with no deformity. No lesions are appreciated. Cardiovascular: Regular rate and rhythm with a normal S1 and S2. No gallops, murmurs, or rubs. Normal PMI, no JVD. No pulse deficits. Respiratory: Lungs have equal breath sounds bilaterally, clear to auscultation and percussion. No rales, rhonchi or wheezes noted. No increased work of breathing, no retractions or nasal flaring. Back: No spinal tenderness. No costovertebral tenderness. Full range of motion. Skin: Warm, dry with normal turgor. Normal color with no rashes, no lesions, and no evidence of cellulitis. MS/ Extremity: Pulses equal, no cyanosis. Neurovascular intact. Full, normal range of motion. Neuro: Awake and alert, GCS 15, oriented to person, place, time, and situation. Cranial nerves II-XII grossly intact. Motor strength 5/5 in all extremities. Sensory grossly intact. Cerebellar exam normal. Normal gait. 00:25 Abdomen/GI: Inspection: abdomen appears normal, Bowel sounds: normal, in all quadrants, Palpation: soft, in all quadrants, mild abdominal tenderness, in the right upper quadrant and left upper quadrant. Vital Signs: 00:23 BP 99 / 59; Pulse 110; Resp 16; Temp 98.8(O); Pulse Ox 100% on R/A; Weight 65.77 kg; ao Height 4 ft. 10 in. (147.32 cm); Pain 5/10; 01:14 BP 115 / 78; Pulse 101; Resp 18; Pulse Ox 99% ; ao 02:22 BP 97 / 66; Pulse 98; Resp 16; Pulse Ox 91% ; ao 02:46 BP 115 / 82; Pulse 95; Resp 16; Temp 98.6; Pulse Ox 99% on R/A; ao 00:23 Body Mass Index 30.30 (65.77 kg, 147.32 cm) ao MDM: 00:02 Patient medically screened. kb 00:25 Data reviewed: vital signs, nurses notes. Data interpreted: Pulse oximetry: on room air kb is 100 %. Interpretation: normal. 02:38 Counseling: I had a detailed discussion with the patient and/or guardian regarding: the kb historical points, exam findings, and any diagnostic results supporting the discharge/admit diagnosis, lab results, radiology results, the need for further work-up and treatment in the hospital. Physician consultation: Bishnu Germain MD was contacted at 02:39, regarding admission, to the medical/surgical unit. patient's condition, and will see patient in ED, shortly. 02:39 ED course: CT scan report says "early appendicitis is difficult to exclude." Will admit kb for observation for this finding, surgical consult and repeat evaluation for appendicitis. Pt has no signs of appendicitis on exam at this time. . 01/17 00:06 Order name: Basic Metabolic Panel; Complete Time: 00:56 kb 01/17 00:06 Order name: CBC with Diff; Complete Time: 01:02 kb 01/17 00:06 Order name: Hepatic Function; Complete Time: 00:56 kb 01/17 00:06 Order name: Lipase; Complete Time: 00:56 kb 01/17 03:12 Order name: CBC with Automated Diff EDMS 01/17 03:12 Order name: Comprehensive Metabolic Panel EDMS 01/17 00:06 Order name: CT Abd/Pelvis - IV Contrast Only kb 01/17 03:13 Order name: Lipase EDMS 01/17 03:13 Order name: Magnesium EDMS 01/17 03:13 Order name: Phosphorus EDMS 01/17 03:13 Order name: Protime (+INR) EDMS 01/17 03:13 Order name: PTT, Activated Partial Thromb EDMS 01/17 00:06 Order name: IV Saline Lock; Complete Time: 00:21 kb 01/17 00:06 Order name: Labs collected and sent; Complete Time: 00:21 kb 01/17 03:12 Order name: CONS Physician Consult EDMS 01/17 03:12 Order name: NPO EDMS Administered Medications: 00:21 Drug: Pepcid 20 mg Route: IVP; Site: right antecubital; ao 00:39 Follow up: Response: No adverse reaction ao 00:30 Drug: NS 0.9% 1000 ml Route: IV; Rate: 1000 ml; Site: left antecubital; ao 01:15 Follow up: IV Status: Completed infusion; IV Intake: 1000ml ao 02:57 Drug: NS 0.9% 1000 ml Route: IV; Rate: 125 ml/hr; Site: left antecubital; ao 02:57 Drug: Zosyn 3.375 grams Route: IVPB; Infused Over: 60 mins; Site: left antecubital; ao Disposition: 07:03 Co-signature as Attending Physician, Ming Lyons MD Available for consultation at ps1 all times . Disposition: 01/17/19 02:39 Hospitalization ordered by Bishnu Germain for Observation. Preliminary diagnosis is Generalized abdominal pain. - Bed requested for Telemetry/MedSurg (observation). - Status is Observation. ao - Condition is Stable. - Problem is new. - Symptoms are unchanged. UTI on Admission? No Signatures: Dispatcher [employer] [facility] Amrita Bryant, JOE-Tika PHOTOVOLTAIC INSTALLER-Aislinn Mcqueen RN RN Gee Geiger RN Ming Dey MD MD ps1 Corrections: (The following items were deleted from the chart) 03:26 02:39 Hospitalization Ordered by Bishnu Germain MD for Observation. Preliminary cg diagnosis is Generalized abdominal pain. Bed requested for Telemetry/MedSurg (observation). Status is Observation. Condition is Stable. Problem is new. Symptoms are unchanged. UTI on Admission? No. kb 03:27 03:26 01/17/2019 02:39 Hospitalization Ordered by Bishnu Germain MD for Observation. cg Preliminary diagnosis is Generalized abdominal pain. Bed requested for Telemetry/MedSurg (observation). Status is Observation. Condition is Stable. Problem is new. Symptoms are unchanged. UTI on Admission? No. cg 04:22 03:27 01/17/2019 02:39 Hospitalization Ordered by Bishnu Germain MD for Observation. ao Preliminary diagnosis is Generalized abdominal pain. Bed requested for Telemetry/MedSurg (observation). Status is Observation. Condition is Stable. Problem is new. Symptoms are unchanged. UTI on Admission? No. cg
[2019-01-17] MEDS ORDERED: PIPER/TAZO/NS 3.375gm 3.375 GM/100 ML BAG ONE (02:44)
[2019-01-17] MEDS ORDERED: HYDROMORPHONE HCL 1 MG/ML INJ IV PRN (03:02)
[2019-01-17] MEDS ORDERED: ONDANSETRON 4 MG/2 ML VIAL IV PRN (03:02)
[2019-01-17] MEDS ORDERED: ACETAMINOPHEN 500 MG TAB PO PRN (03:02)
[2019-01-17] MEDS ORDERED: Levofloxacin500mg IV 500 MG/100 ML BAG IV SCH (04:00)
[2019-01-17] MEDS ORDERED: SMZ./TMP. 800/160 MG TABLET ONE (04:28)
[2019-01-17] MEDS: NA CHLORIDE 0.9% 1,000 ML IV SCH ×2 (04:44→14:00)
[2019-01-17 04:53] VITALS: BMI 32.2
[2019-01-17 05:59] LABS: Absolute Lymphocytes (CBC) 1.7 K/uL (0.7-4.9); Basophils % 0.4 % (0-1.3); Hematocrit 33.9 % (36.0-45.0); Lymphocytes % 26.9 % (15.3-44.8); MPV 9.3 fL (7.6-11.3); RBC Red Blood Cell Count 4.08 M/uL (3.86-4.86)
[2019-01-17] MEDS: METRONIDAZOLE 500mg IVPB 500 MG/100 ML BAG IV SCH ×2 (06:00→13:50)
[2019-01-17 06:15] LABS: Protime INR 1.13
[2019-01-17 06:16] LABS: ALT/SGPT 47 U/L (12-78); AST/SGOT 18 U/L (15-37); Albumin 3.4 g/dL (3.4-5.0); Alkaline Phosphatase 74 U/L (45-117); BUN Blood Urea Nitrogen 6 mg/dL (7-18); Bicarbonate 26 mmol/L (21-32); Bilirubin Total 0.5 mg/dL (0.2-1.0); Glucose Level 104 mg/dL (74-106); Lipase 129 U/L (73-393); Phosphorus 4.1 mg/dL (2.5-4.9); Potassium 3.5 mmol/L (3.5-5.1); Protein, Total 7.3 g/dL (6.4-8.2); Sodium Level 141 mmol/L (136-145)
[2019-01-17] MEDS ORDERED: HYDROMORPHONE HCL 0.5 MG/0.5 ML INJ IV PRN (07:30)
[2019-01-17 08:21] LABS: Urine Appearance CLEAR; Urine Bilirubin NEGATIVE (NEG); Urine Blood NEGATIVE (NEG); Urine Color YELLOW; Urine Glucose NEGATIVE (NEG); Urine Protein NEGATIVE (NEG); Urine Specific Gravity >=1.030 (1.005-1.030); Urine Urobilinogen 0.2 mg/dL (0.2-1.0)
[2019-01-17 08:48] LABS: Urine Microscopic Reflex NO UMIC
[2019-01-17] MEDS ORDERED: KCL 20 MEQ/100 mL IVPB 20 MEQ/100 ML BAG IV SCH (09:00)
[2019-01-17 10:16] VITALS: BP 109/60; TEMP 97.4
--- NOTE | 2019-01-17 11:31 | RAD REPORT ---
EXAM DESCRIPTION: Abdomen Pelvis W Contrast CLINICAL HISTORY: ABD PAIN COMPARISON: None. TECHNIQUE: CT ABDOMEN PELVIS WITH IV CONTRAST on 01/17/2019 12:06 AM CDT This exam was performed according to our departmental dose-optimization program, which includes autom ated exposure control, adjustment of the mA and/or kV according to patient size and/or use of iterati ve reconstruction technique. FINDINGS: Lower lungs are clear. Abdomen: Liver is diffusely fatty in attenuation. There is no biliary dilatation. Gallbladder is norm al in appearance. The pancreas and spleen are normal in appearance. The adrenal glands and kidneys ar e unremarkable. Abdominal aorta is normal in course and caliber without aneurysm. There is no free air. There is no r etroperitoneal adenopathy. Pelvis: There is no bowel obstruction. Urinary bladder is unremarkable. There is a small amount of fr ee pelvic fluid. Uterus is normal in size. Appendix is borderline in size measuring 8 mm. There may b e faint surrounding inflammation. Skeleton: There are no acute osseous findings. No suspicious bony lesions. IMPRESSION: Equivocal appearance of the appendix. Early appendicitis is difficult to exclude. Electronically signed by: Henry Jerome MD 01/17/2019 2:23 AM CDT Due to temporary technical issues with the PACS/Fluency reporting system, reports are being signed by the in house radiologist as a courtesy to ensure prompt reporting. The interpreting radiologist is f ully responsible for the content of the report.
--- NOTE | 2019-01-17 13:32 | P.HP ---
Certification for Inpatient Patient admitted to: Observation With expected LOS: <2 Midnights Patient will require the following post-hospital care: None Practitioner: I am a practitioner with admitting privileges, knowledge of patient current condition, hospital course, and medical plan of care. Services: Services provided to patient in accordance with Admission requirements found in Title 42 Section 412.3 of the Code of Federal Regulations Patient History Date of Service: 01/17/19 Reason for admission: Abdominal pain; N/V History of Present Illness: Patient is a 23yo who was admitted to the hospital with N/v, and abdominal pain. Patient had a CT scan performed and it revealed no significant abnormality. Patient's CT scan report mentioned that it could not rule out appendicitis. Patient was having a severe amount of pain so decision was made to admit to the hospital for further evaluation. Allergies No Known Allergies Allergy (Verified 01/17/19 04:30) Home Medications: Butalbital/Aspirin/Caffeine [Fiorinal 50-325-40 mg Capsule] 1 cap PO Q4H PRN 12/28 Lisdexamfetamine Dimesylate [Vyvanse] 50 mg PO DAILY 01/17/19 - Past Medical/Surgical History Has patient received pneumonia vaccine in the past: No Diabetic: No -: ADHD -: Migraines -: none - Family History Father Medical History: Hypertension, Diabetes Mother Medical History: Hypertension - Social History Smoking Status: Current some day smoker Alcohol use: Yes CD- Drugs: Yes Caffeine use: Yes Place of Residence: Home Review of Systems 10-point ROS is otherwise unremarkable Physical Examination - Vital Signs Temperature: 97.4 F Blood Pressure: 109/60 Pulse: 80 Respirations: 16 Pulse Ox (%): 100 - Physical Exam General: Alert, In no apparent distress, Oriented x3 HEENT: Atraumatic, PERRLA, Mucous membr. moist/pink, EOMI, Sclerae nonicteric Neck: Supple, 2+ carotid pulse no bruit, No LAD, Without JVD or thyroid abnormality Respiratory: Clear to auscultation bilaterally, Normal air movement Cardiovascular: Regular rate/rhythm, Normal S1 S2 Gastrointestinal: Normal bowel sounds, Soft and benign, Non-distended, No rebound, No guarding, Tenderness Musculoskeletal: No clubbing, No swelling, No tenderness Integumentary: No rashes Neurological: Normal gait, Normal speech, Normal strength at 5/5 x4 extr, Normal tone, Sensation intact, Cranial nerves 3-12 intact, Normal affect Lymphatics: No axilla or inguinal lymphadenopathy - Studies Laboratory Data (last 24 hrs) 01/17/19 00:10: WBC 10.3 D, Hgb 11.9 L, Hct 36.2, Plt Count 269 01/17/19 00:10: Sodium 139, Potassium 3.6, BUN 8, Creatinine 0.77, Glucose 93, Total Bilirubin 0.3, AST 26, ALT 55, Alkaline Phosphatase 83, Lipase 143 Assessment & Plan - Problems (Diagnosis) (1) Abdominal pain Current Visit: Yes Status: Acute - Plan PLAN: 1. IVFs 2. IV abx 3. Surgery consultation 4. Labs pending 5. GI/DVT prophylaxis Discharge Plan: Home Plan to discharge in: 24 Hours - Advance Directives Does patient have a Living Will: No Does patient have a Durable POA for Healthcare: No - Code Status/Comfort Care Code Status Assessed: Yes Code Status: Full Code Critical Care: No Time Spent Managing PTS Care (In Minutes): 45
--- NOTE | 2019-01-17 13:41 | P.DS ---
Discharge Date: 01/17/19 Disposition: ROUTINE DISCHARGE Discharge Condition: GOOD Reason for Admission: Abdominal pain; N/V Consultations: General surgery - Problems (1) Abdominal pain Status: Acute Brief History of Present Illness: Patient is a 23yo who was admitted to the hospital with N/v, and abdominal pain. Patient had a CT scan performed and it revealed no significant abnormality. Patient's CT scan report mentioned that it could not rule out appendicitis. Patient was having a severe amount of pain so decision was made to admit to the hospital for further evaluation. Hospital Course: Patient's symptoms are improved. Clinically, patient is doing much better. Abdominal pain has resolved. Seen by General surgery and outpatient follow-up is recommended. I will continue antibiotics for 7 more days. Return to the ER if symptoms worsen. Vital Signs/Physical Exam: Temp Pulse Resp BP Pulse Ox 97.4 F 80 16 109/60 100 01/17/19 13:33 01/17/19 13:33 01/17/19 13:33 01/17/19 13:33 01/17/19 13:33 General: Alert, In no apparent distress, Oriented x3 Laboratory Data at Discharge: WBC 6.4 K/uL (4.3-10.9) D 01/17/19 05:44 Hgb 11.2 g/dL (12.0-15.0) L 01/17/19 05:44 Hct 33.9 % (36.0-45.0) L 01/17/19 05:44 Plt Count 243 K/uL (152-406) 01/17/19 05:44 PT 13.3 SECONDS (9.5-12.5) H 01/17/19 05:44 INR 1.13 01/17/19 05:44 APTT 34.4 SECONDS (24.3-36.9) 01/17/19 05:44 Sodium 141 mmol/L (136-145) 01/17/19 05:44 Potassium 3.5 mmol/L (3.5-5.1) 01/17/19 05:44 BUN 6 mg/dL (7-18) L 01/17/19 05:44 Creatinine 0.70 mg/dL (0.55-1.3) 01/17/19 05:44 Glucose 104 mg/dL (74-106) 01/17/19 05:44 Phosphorus 4.1 mg/dL (2.5-4.9) 01/17/19 05:44 Magnesium 2.0 mg/dL (1.8-2.4) 01/17/19 05:44 Total Bilirubin 0.5 mg/dL (0.2-1.0) 01/17/19 05:44 AST 18 U/L (15-37) 01/17/19 05:44 ALT 47 U/L (12-78) 01/17/19 05:44 Alkaline Phosphatase 74 U/L (45-117) 01/17/19 05:44 Lipase 129 U/L (73-393) 01/17/19 05:44 Home Medications: Butalbital/Aspirin/Caffeine [Fiorinal 50-325-40 mg Capsule] 1 cap PO Q4H PRN 12/28 Levofloxacin [Levaquin] 250 mg PO DAILY #7 tablet 01/17/19 Lisdexamfetamine Dimesylate [Vyvanse] 50 mg PO DAILY 01/17/19 metroNIDAZOLE [Flagyl] 250 mg PO Q6H #28 tablet 01/17/19 New Medications: Levofloxacin [Levaquin] 250 mg PO DAILY #7 tablet metroNIDAZOLE [Flagyl] 250 mg PO Q6H #28 tablet Patient Discharge Instructions: OK to DC IV and DC home if ok with Dr. Garvey. Follow-up with PCP in 1-2 weeks. Return to the ER if symptoms worsens. Follow-up with Dr. Garvey as needed Diet: Regular Activity: Fall precautions Followup: Gibson Garvey MD [ACTIVE - CAN ADMIT] - Time spent managing pt's care (in minutes): 20
--- NOTE | 2019-01-17 16:01 | P.CNS ---
Date of Consult: 01/17/19 PC: I was asked to see this 23-year-old female regards to her right lower quadrant abdominal pain HPC: Patient apparently presented emergency room with abdominal pain yesterday. Actually described the pain as being in the right upper quadrant. It went through to her back. Associated with some nausea. Today her pain is gone, she has been up ambulating, and is known in the no discomfort. PMH: No prior episodes PSHx: No prior surgeries SOC: No known allergies SYS REVIEW: No cough, wheeze, shortness of breath. No chest pain or palpitations. No urinary complaints. Weight has been steady. No history of gallstones in her family. O/E awake alert vital signs are stable HEENT: Within normal limits Chest: Air entry is equal bilaterally ABD: No guarding rebound or tenderness LOCO: Intact DATA: White cell count within normal IMPRESSION: Nonsurgical abdomen PLAN: This patient, who presented emergency room, apparently has significant right lower quadrant abdominal pain. She was admitted for observation pain control. Today she is up ambulating, tolerating a diet and is relatively pain free. Her white cell count has returned to normal. Recommend patient be discharged may follow up in my office if she needs to , thank
[2019-01-17] MEDS ORDERED: ENOXAPARIN 30 MG/0.3 ML SQ SCH (18:00)
== END 2019-01-17 16:41 | disposition home or self-care (01) ==
LOC: ER 23:53 → ERHOLD 01-17 03:34 → 2ND 01-17 03:39
PROVIDERS: ADMIT Hospitalist; ATTEND Hospitalist
DX: R10.9 Unspecified abdominal pain (principal); F17.210 Nicotine dependence, cigarettes, uncomplicated
CPT/HCPCS: 36415; 74177; 80048; 80053; 80076; 81003; 83690; 83735; 84100; 85025; 85610; 85730; 96361; 96374; 96375; 99285; G0378; J1170; J2405; J2543; J7030; Q9967

== ENCOUNTER 2019-03-30 18:30 | Emergency (ER) | payer SELFPAY ==
--- NOTE | 2019-03-30 20:13 | ER ---
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 Transition of care: patient was not received from another setting of care. Onset of symptoms was March 29, 2019. Risk Assessment: Do you want to hurt yourself or someone else? Patient reports no desire to harm self or others. Initial Sepsis Screen: Does the patient meet any 2 criteria? No. Patient's initial sepsis screen is negative. Does the patient have a suspected source of infection? No. Patient's initial sepsis screen is negative. Care prior to arrival: None. 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 - Social history:: Smoking status: Patient uses tobacco products, denies chronic smoking, but will smoke occasionally. - Ebola Screening: : Patient negative for fever greater than or equal to 101.5 degrees Fahrenheit, and additional compatible Ebola Virus Disease symptoms Patient denies exposure to infectious person Patient denies travel to an Ebola-affected area in the 21 days before illness onset No symptoms or risks identified at this time. Screenin:52 Abuse screen: Denies threats or abuse. Nutritional screening: No deficits noted. mw Tuberculosis screening: No symptoms or risk factors identified. Fall Risk None identified. Assessment: 19:52 Reassessment: No changes from previously documented assessment. Pain: Denies pain. mw Neuro: No deficits noted. Cardiovascular: No deficits noted. Respiratory: No deficits noted. GI: No deficits noted. : No deficits noted. EENT: No deficits noted. Derm: No deficits noted. Musculoskeletal: No deficits noted. Vital Signs: 18:53 BP 103 / 91; Pulse 126; Resp 16; Temp 100.1(O); Pulse Ox 100% on R/A; Weight 65.77 kg; iw Height 4 ft. 9 in. (144.78 cm); Pain 9/10; 18:53 Body Mass Index 31.38 (65.77 kg, 144.78 cm) iw ED Course: 18:33 Patient arrived in ED. mr 18:34 Amrita Bryant FNP-C is [facility]. kb 18:34 Bolivar Saavedra MD is Attending Physician. kb 18:53 Triage completed. iw 18:53 Arm band placed on. iw 19:15 Pritesh Weston, RN is Primary Nurse. tr5 19:52 No apparent distress. Awaiting lab results. mw 19:52 Patient has correct armband on for positive identification. Call light in reach. Side mw rails up X 1. 19:52 No provider procedures requiring assistance completed. Patient did not have IV access mw during this emergency room visit. Administered Medications: No medications were administered Outcome: 20:13 Discharge ordered by MD. kb 20:19 Discharged to home ambulatory. mw 20:19 Condition: good 20:19 Discharge instructions given to patient. 20:20 Patient left the ED. mw Signatures: Amrita Bryant FNP-C FNP-Ckb Webb, Martha RN TADEO Julee Jacobsen Marlene Nobles, TADEO PIEDRA Pritesh Weston RN RN tr5
--- NOTE | 2019-03-30 20:13 | EDPHYS ---
Physician Documentation [facility] Name: Melanie Kim Age: 23 yrs Sex: Female : 1995 Arrival Date: 03/30/2019 Time: 18:33 Bed 28 Private MD: ED Physician Bolivar Saavedra HPI: 03/30 20:47 This 23 yrs old Female presents to ER via Ambulatory with complaints of Fever. kb 20:47 The patient or guardian reports cough, flu symptoms, low-grade fever, myalgias. Onset: kb The symptoms/episode began/occurred yesterday. Severity of symptoms: At their worst the symptoms were mild, moderate, in the emergency department the symptoms are unchanged. Modifying factors: The symptoms are alleviated by nothing, the symptoms are aggravated by nothing. 20:47 Associated signs and symptoms: Pertinent positives: fever. The patient has not kb experienced similar symptoms in the past. The patient has not recently seen a physician. Pt reports fever, body aches, and cough that started yesterday. Reports significant other diagnosed with flu yesterday. 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 - Social history:: Smoking status: Patient uses tobacco products, denies chronic smoking, but will smoke occasionally. - Ebola Screening: : Patient negative for fever greater than or equal to 101.5 degrees Fahrenheit, and additional compatible Ebola Virus Disease symptoms Patient denies exposure to infectious person Patient denies travel to an Ebola-affected area in the 21 days before illness onset No symptoms or risks identified at this time. ROS: 20:47 ENT: Negative for injury, pain, and discharge, Neck: Negative for injury, pain, and kb swelling, Cardiovascular: Negative for chest pain, palpitations, and edema, Abdomen/GI: Negative for abdominal pain, nausea, vomiting, diarrhea, and constipation, Back: Negative for injury and pain, MS/Extremity: Negative for injury and deformity, Skin: Negative for injury, rash, and discoloration, Neuro: Negative for headache, weakness, numbness, tingling, and seizure. 20:47 Constitutional: Positive for body aches, chills, fatigue, fever, malaise. 20:47 Respiratory: Positive for cough. Exam: 20:47 Constitutional: This is a well developed, well nourished patient who is awake, alert, kb and in no acute distress. Head/Face: Normocephalic, atraumatic. ENT: Nares patent. No nasal discharge, no septal abnormalities noted. Tympanic membranes are normal and external auditory canals are clear. Oropharynx with no redness, swelling, or masses, exudates, or evidence of obstruction, uvula midline. Mucous membranes moist. Neck: Trachea midline, no thyromegaly or masses palpated, and no cervical lymphadenopathy. Supple, full range of motion without nuchal rigidity, or vertebral point tenderness. No Meningismus. Chest/axilla: Normal chest wall appearance and motion. Nontender with no deformity. No lesions are appreciated. Cardiovascular: Regular rate and rhythm with a normal S1 and S2. No gallops, murmurs, or rubs. Normal PMI, no JVD. No pulse deficits. Respiratory: Lungs have equal breath sounds bilaterally, clear to auscultation and percussion. No rales, rhonchi or wheezes noted. No increased work of breathing, no retractions or nasal flaring. Abdomen/GI: Soft, non-tender, with normal bowel sounds. No distension or tympany. No guarding or rebound. No evidence of tenderness throughout. Skin: Warm, dry with normal turgor. Normal color with no rashes, no lesions, and no evidence of cellulitis. MS/ Extremity: Pulses equal, no cyanosis. Neurovascular intact. Full, normal range of motion. Neuro: Awake and alert, GCS 15, oriented to person, place, time, and situation. Cranial nerves II-XII grossly intact. Motor strength 5/5 in all extremities. Sensory grossly intact. Cerebellar exam normal. Normal gait. Vital Signs: 18:53 BP 103 / 91; Pulse 126; Resp 16; Temp 100.1(O); Pulse Ox 100% on R/A; Weight 65.77 kg; iw Height 4 ft. 9 in. (144.78 cm); Pain 9/10; 18:53 Body Mass Index 31.38 (65.77 kg, 144.78 cm) iw MDM: 19:14 Patient medically screened. kb 20:46 Data reviewed: vital signs, nurses notes. Data interpreted: Pulse oximetry: on room air kb is 100 %. Interpretation: normal. Counseling: I had a detailed discussion with the patient and/or guardian regarding: the historical points, exam findings, and any diagnostic results supporting the discharge/admit diagnosis, lab results, the need for outpatient follow up, a family practitioner, to return to the emergency department if symptoms worsen or persist or if there are any questions or concerns that arise at home. 03/30 18:59 Order name: Flu; Complete Time: 20:09 kb Administered Medications: No medications were administered Disposition: 03/30/19 20:13 Discharged to Home. Impression: Acute upper respiratory infection, unspecified. - Condition is Stable. - Discharge Instructions: Upper Respiratory Infection, Adult, [id number], Viral Respiratory Infection, [id number]. - Medication Reconciliation Form, Thank You Letter, Antibiotic Education, Prescription Opioid Use form. - Follow up: Emergency Department; When: As needed; Reason: Worsening of condition. Follow up: Private Physician; When: 2 - 3 days; Reason: Recheck today's complaints, Continuance of care, Re-evaluation by your physician. Addendum: 04/05/2019 07:06 Co-signature as Attending Physician, Bolivar Saavedra MD. r n Signatures: Dispatcher [employer] EDAmrita Carlin, JOE-C OBSERVATORY DIRECTOR-Ckb Syeda Garcia RN RN mw Williams, Irene, RN RN iw Nieto, Roman, MD MD video journalist: (The following items were deleted from the chart) 03/30 20:20 20:13 03/30/2019 20:13 Discharged to Home. Impression: Acute upper respiratory mw infection, unspecified. Condition is Stable. Forms are Medication Reconciliation Form, Thank You Letter, Antibiotic Education, Prescription Opioid Use. Follow up: Emergency Department; When: As needed; Reason: Worsening of condition. Follow up: Private Physician; When: 2 - 3 days; Reason: Recheck today's complaints, Continuance of care, Re-evaluation by your physician. kb
[2019-03-30 22:43] VITALS: BP 103/91; TEMP 100.1; O2SAT 100
== END 2019-03-30 20:20 | disposition home or self-care (01) ==
LOC: ER 18:30
DX: J06.9 Acute upper respiratory infection, unspecified (principal); Z72.0 Tobacco use
CPT/HCPCS: 87804; 99281